=== PATIENT | female | born 1945 | race Caucasian/White ===

== ENCOUNTER → 2020-10-30 10:44 | Outpatient (CLI) | payer MEDICARE, SELFPAY ==
--- NOTE | 2020-10-30 10:46 | DI.CT.S_ITS ---
PROCEDURE: CT HEAD/BRAIN WO CON INDICATIONS: Progressive symptomatic trigeminal neuralgia TECHNIQUE: Noncontrast 4.5 mm thick angled axial sections acquired from the foramen magnum to the vertex, with coronal and sagittal reformats. For radiation dose reduction, the following was used: automated exposure control, adjustment of mA and/or kV according to patient size. COMPARISON: None. FINDINGS: Image quality: Excellent. CSF spaces: Basal cisterns are patent. No extra-axial fluid collections. The ventricles are symmetric in size and shape. Brain: No intracranial bleeds or masses. There is cerebral volume loss for age, with resultant ventricular and sulcal prominence. There are periventricular and deep white matter chronic small vessel ischemic changes. There is intracranial internal carotid artery atherosclerosis. To the limits of this standard protocol noncontrast CT, no definite abnormalities of trigeminal nerves or the Meckel's caves can be seen. Skull and face: Calvarium and visualized facial bones appear intact, without suspicious lesions. Sinuses: Visualized sinuses and mastoids are clear. IMPRESSION: Unremarkable noncontrast head CT. If it would be helpful for clinical management decision making, please consider a dedicated skull base protocol MRI (without and with contrast) for further evaluation (assuming that there is no contraindication). Dictated by: Agustin Ho M.D. on 10/30/2020 at 10:04 Approved by: Agustin Ho M.D. on 10/30/2020 at 10:06
== END ==
PROVIDERS: PCP Family Medicine; Referring Provider Family Medicine; Visit Provider Family Medicine
DX: G50.0 Trigeminal neuralgia (principal); F07.81 Postconcussional syndrome
CPT/HCPCS: 70450

== ENCOUNTER 2021-05-16 14:30 | Observation (INO) | payer MEDICARE, SELFPAY ==
[2021-05-16] VITALS (12 sets, daily range): BP systolic 127–161; BP diastolic 68–78; PULSE 77–95; RESP 17–27; TEMP 36.1; O2SAT 92–98; BMI 20.5; BMI 20.8
--- NOTE | 2021-05-16 16:22 | ED_ITS ---
HPI - GI Bleed <Caterina Levy MD - Last Filed: 05/17/21 07:42> General Chief complaint: GI Bleed Stated complaint: Bleeding post endo/colonoscopy Time Seen by Provider: 05/16/21 16:07 Source: patient and family Mode of arrival: Wheelchair History of Present Illness HPI Narrative: 75-year-old woman with a history of reflux, esophageal strictures, post menopause, hyperlipidemia who underwent both upper lower en doscopy on May 09 at [facility] in [place]. On the she noticed normal stool but UTI type symptoms and was started on Cipro. From the she had some blood mixed in with stool in notice that the stool is becoming darker. On the she had to dark stools with red blood mixed in and on the stools. Today she is having increasing abdominal bloating and cramping and had to very black soft but formed stools mixed with deeper red blood before noon today and is beginning to feel slightly dizzy when she stands up. She describes no chest pain, palpitations no shortness of breath. No headaches or acute neurologic symptoms. The UTI symptoms are improved and she has 2 more doses of Cipro to complete that course. EGD and colonoscopy records indicate an 18 mm stricture at 37 cm from the incisor. An 18 mm balloon was used to dilate this without complication. The co lonoscopy showed 2 polyps in the ascending colon that were removed, diverticulosis of the sigmoid colon and internal hemorrhoids. Related Data Home Medications Medication Instructions Recorded Confirmed omeprazole 20 mg capsule,delayed 20 mg PO DAILY 09/10/20 05/16/21 release trazodone 50 mg tablet 50 mg PO BEDTIME 09/10/20 05/16/21 estradiol 0.5 mg tablet 0.5 mg PO DAILY tab 10/24/20 05/16/21 simvastatin 10 mg tablet 10 mg PO DAILY tab 10/24/20 05/16/21 Allergies Allergy/AdvReac Type Severity Reaction Status Date / Time prochlorperazine AdvReac Intermediate Verified 04/22/21 10:26 [From Compazine] Review of Systems <Caterina Levy MD - Last Filed: 05/17/21 07:42> Review of Systems Narrative: Remainder of complete review of systems is otherwise unremarkable except for that included in the HPI. Patient History <Caterina Levy MD - Last Filed: 05/17/21 07:42> Medical History Constipation GERD (gastroesophageal reflux disease) Head contusion Osteoarthritis Post concussive syndrome Trigeminal neuralgia Social History household members: significant other Smoking Status: Former smoker alcohol intake: current Smoking Status: Former smoker alcohol intake frequency: a few times a month Exam <Caterina Levy MD - Last Filed: 05/17/21 07:42> Narrative Exam Narrative: General: Healthy appearing, in no acute distress. Able to give a complete and coherent history. Well-nourished well-developed HEENT: Moist mucous membranes, normal sclera with reactive pupils, Neck: No JVD, supple Respiratory: Lungs are clear to auscultation, no wheezing no rales no rhonchi. Full and symmetrical air movement Cardiac: Regular rate and rhythm no murmurs no bruits Abdomen: Soft, mild distension, diffuse tenderness without rebound or guarding and hyperactive bowel tones, no flank pain Skin: Warm and dry, no rashes Neurologic: Grossly neurologically intact with no obvious asymmetries or abnormalities Extremities: No trauma, well perfused Psych: Cooperative, appropriate insight and affect Initial Vital Signs Initial Vital Signs: Vital Signs Temperature 97 F L 05/16/21 15:01 Pulse Rate 95 H 05/16/21 15:01 Respiratory Rate 20 05/16/21 15:01 Blood Pressure 144/68 H 05/16/21 15:01 Pulse Oximetry 97 05/16/21 15:01 <Kristen Barry DO - Last Filed: 05/17/21 04:50> Initial Vital Signs Initial Vital Signs: Vital Signs Temperature 97 F L 05/16/21 15:01 Pulse Rate 95 H 05/16/21 15:01 Respiratory Rate 20 05/16/21 15:01 Blood Pressure 144/68 H 05/16/21 15:01 Pulse Oximetry 97 05/16/21 15:01 Course <Caterina Levy MD - Last Filed: 05/17/21 07:42> Orders Ordered: Acetaminophen (Acetaminophen 325 Mg Tablet) 650 mg PO Q6HR PRN PRN Reason: Fever/Mild Pain (1-3) Ceftriaxone Sodium 1,000 mg/ (Sodium Chloride) 100 mls @ 200 mls/hr IV Q24H [facility] Last Infusion: 05/16/21 21:21 Dose: 0 mls/hr Documented by: Admin: 05/16/21 20:32 Dose: 200 mls/hr Documented by: MASOOD Sodium Chloride (Normal Saline 0.9%) 1,000 mls @ 100 mls/hr IV CONT GINNY Last Admin: 05/17/21 02:49 Dose: 100 mls/hr Documented by: CHE Morphine Sulfate (Morphine 2 Mg/Ml Inj) 2 mg IV Q4HR PRN PRN Reason: Pain, Moderate (4-6) Naloxone HCl (Naloxone 0.4 Mg/Ml Vial) 0.2 mg IV Q2MIN PRN PRN Reason: Opiate Reversal Ondansetron HCl (Ondansetron 4 Mg/2 Ml Inj) 4 mg IV Q8HR PRN PRN Reason: Nausea And Vomiting Pantoprazole Sodium (Pantoprazole 40 Mg Vial) 40 mg IV BID GINNY Discontinued Medications Sodium Chloride (Normal Saline 0.9%) 1,000 mls @ 1,000 mls/hr IV BOLUS ONE Stop: 05/16/21 17:27 Last Infusion: 05/16/21 18:28 Dose: 0 mls/hr Documented by: Admin: 05/16/21 16:37 Dose: 1,000 mls/hr Documented by: LIN Pantoprazole Sodium (Pantoprazole 40 Mg Vial) 80 mg IV NOW ONE Stop: 05/16/21 16:29 Last Admin: 05/16/21 16:38 Dose: 80 mg Documented by: LIN Vital Signs Vital signs: Vital Signs - 8 hr 05/16/21 15:01 Temperature 97 F L Pulse Rate 95 H Respiratory Rate 20 Blood Pressure 144/68 H Pulse Oximetry 97 <Kristen Barry DO - Last Filed: 05/17/21 04:50> Orders Ordered: Acetaminophen (Acetaminophen 325 Mg Tablet) 650 mg PO Q6HR PRN PRN Reason: Fever/Mild Pain (1-3) Ceftriaxone Sodium 1,000 mg/ (Sodium Chloride) 100 mls @ 200 mls/hr IV Q24H [facility] Last Infusion: 05/16/21 21:21 Dose: 0 mls/hr Documented by: Admin: 05/16/21 20:32 Dose: 200 mls/hr Documented by: MASOOD Sodium Chloride (Normal Saline 0.9%) 1,000 mls @ 100 mls/hr IV CONT GINNY Last Admin: 05/17/21 02:49 Dose: 100 mls/hr Documented by: CHE Morphine Sulfate (Morphine 2 Mg/Ml Inj) 2 mg IV Q4HR PRN PRN Reason: Pain, Moderate (4-6) Naloxone HCl (Naloxone 0.4 Mg/Ml Vial) 0.2 mg IV Q2MIN PRN PRN Reason: Opiate Reversal Ondansetron HCl (Ondansetron 4 Mg/2 Ml Inj) 4 mg IV Q8HR PRN PRN Reason: Nausea And Vomiting Pantoprazole Sodium (Pantoprazole 40 Mg Vial) 40 mg IV BID GINNY Discontinued Medications Sodium Chloride (Normal Saline 0.9%) 1,000 mls @ 1,000 mls/hr IV BOLUS ONE Stop: 05/16/21 17:27 Last Infusion: 05/16/21 18:28 Dose: 0 mls/hr Documented by: Admin: 05/16/21 16:37 Dose: 1,000 mls/hr Documented by: LIN Pantoprazole Sodium (Pantoprazole 40 Mg Vial) 80 mg IV NOW ONE Stop: 05/16/21 16:29 Last Admin: 05/16/21 16:38 Dose: 80 mg Documented by: LIN Reevaluation(s) Reevaluation #1: Patient is seen and evaluated independently by myself. Patient's exam some mild abdominal discomfort but otherwise reassuring. Patient's labs and CT imaging reviewed by myself. Well as her recent symptoms. Patient states she just started having rectal bleeding in the last 12-24 hours. Time: 19:01 Consultations Consultation #1: Dr. Leyva, accepts for observation. Reviewed patient's EGD and colonoscopy findings. Labs. CT chest which was requested by Dr. Montenegro. Time: 19:26 Consultation #2: Dr. Montenegro updated on CT results. Aware of consult. Vital Signs Vital signs: Vital Signs - 8 hr 05/16/21 15:01 Temperature 97 F L Pulse Rate 95 H Respiratory Rate 20 Blood Pressure 144/68 H Pulse Oximetry 97 MDM - GI Bleed <Caterina Levy MD - Last Filed: 05/17/21 07:42> Lab Data Result diagrams: 05/16/21 23:25 05/16/21 15:59 Labs: Lab Results 05/16/21 05/16/21 05/16/21 Range/Units 15:59 15:59 15:59 WBC 10.1 (4.5-11.0) X10^3/uL RBC 4.18 (4.0-5.2) X10^6/uL Hgb 13.2 (12.0-16.0) g/dL Hct 39.4 (36-46) % MCV 94.1 (80-100) fL MCH 31.5 (26-34) PG MCHC 33.5 (30-36) % RDW 13.0 (11.6-14.8) % Plt Count 163 (150-400) X10^3/uL Neut % (Auto) 64.3 (50-75) % Lymph % (Auto) 27.5 (25-40) % Gordon % (Auto) 6.7 (3-14) % Eos % (Auto) 1.0 L (2-4) % Baso % (Auto) 0.5 (0-2) % Neut # (Auto) 6500 (1011-8938) /uL Lymph # (Auto) 2800 (4629-3305) /uL Gordon # (Auto) 700 (0-900) /uL Eos # (Auto) 100 (0-450) /uL Baso # (Auto) 100 (0-100) /uL Sodium 141 (137-145) mmol/L Potassium 3.7 (3.4-5.1) mmol/L Chloride 106 (98-107) mmol/L Carbon Dioxide 25 (22-32) mmol/L BUN 14 (7-17) mg/dL Creatinine 0.68 (0.52-1.04) mg/dL Estimated GFR > 60.0 (>60) mL/min BUN/Creatinine Ratio 20.6 (6-22) Glucose 101 (80-110) mg/dL Calcium 9.2 (8.4-10.2) mg/dL Magnesium 2.1 (1.6-2.3) mg/dL Total Bilirubin 0.6 (0.2-1.3) mg/dL AST 31 (14-36) IU/L ALT 16 (<35) IU/L Alkaline Phosphatase 59 (38-126) U/L Troponin I < 0.012 (0.01-0.034) ng/mL Total Protein 6.9 (6.3-8.2) g/dL Albumin 4.2 (3.5-5.0) g/dL Globulin 2.7 (1.7-4.1) g/dL Albumin/Globulin Ratio 1.6 (1.0-2.8) Lipase 88 (23-300) U/L Urine Color Urine Appearance Urine pH (4.5-8.0) Ur Specific [place] (1.000-1.035) Urine Protein (Negative) Urine Glucose (UA) (Negative) g/dL Urine Ketones (NEGATIVE) Urine Occult Blood (Negative) Urine Nitrate (Negative) Urine Bilirubin (NEGATIVE) Urine Urobilinogen (0.2) E.U./dL Ur Leukocyte Esterase (NEGATIVE) Urine RBC (0-5/HPF) Urine WBC (0-5/HPF) Ur Squamous Epith Cells (0-5/HPF) Urine Bacteria (None) Ur Culture Indicated? SARS-CoV-2 (PCR) (Negative) Blood Type Antibody Screen 05/16/21 05/16/21 05/16/21 Range/Units 15:59 16:45 17:17 WBC (4.5-11.0) X10^3/uL RBC (4.0-5.2) X10^6/uL Hgb (12.0-16.0) g/dL Hct (36-46) % MCV (80-100) fL MCH (26-34) PG MCHC (30-36) % RDW (11.6-14.8) % Plt Count (150-400) X10^3/uL Neut % (Auto) (50-75) % Lymph % (Auto) (25-40) % Gordon % (Auto) (3-14) % Eos % (Auto) (2-4) % Baso % (Auto) (0-2) % Neut # (Auto) (1407-0338) /uL Lymph # (Auto) (3000-3866) /uL Gordon # (Auto) (0-900) /uL Eos # (Auto) (0-450) /uL Baso # (Auto) (0-100) /uL Sodium (137-145) mmol/L Potassium (3.4-5.1) mmol/L Chloride (98-107) mmol/L Carbon Dioxide (22-32) mmol/L BUN (7-17) mg/dL Creatinine (0.52-1.04) mg/dL Estimated GFR (>60) mL/min BUN/Creatinine Ratio (6-22) Glucose (80-110) mg/dL Calcium (8.4-10.2) mg/dL Magnesium (1.6-2.3) mg/dL Total Bilirubin (0.2-1.3) mg/dL AST (14-36) IU/L ALT (<35) IU/L Alkaline Phosphatase (38-126) U/L Troponin I (0.01-0.034) ng/mL Total Protein (6.3-8.2) g/dL Albumin (3.5-5.0) g/dL Globulin (1.7-4.1) g/dL Albumin/Globulin Ratio (1.0-2.8) Lipase (23-300) U/L Urine Color Yellow Urine Appearance Clear Urine pH 5.5 (4.5-8.0) Ur Specific [place] <=1.005 (1.000-1.035) Urine Protein Negative (Negative) Urine Glucose (UA) Negative (Negative) g/dL Urine Ketones Negative (NEGATIVE) Urine Occult Blood Trace-lysed (Negative) Urine Nitrate Negative (Negative) Urine Bilirubin Negative (NEGATIVE) Urine Urobilinogen 0.2 (0.2) E.U./dL Ur Leukocyte Esterase Negative (NEGATIVE) Urine RBC 0-1/hpf (0-5/HPF) Urine WBC 0-1/hpf (0-5/HPF) Ur Squamous Epith Cells 0-1 /hpf (0-5/HPF) Urine Bacteria Occasional (0-1) (None) Ur Culture Indicated? Cult not indicated SARS-CoV-2 (PCR) Negative (Negative) Blood Type O Positive Antibody Screen Negative <Kristen Barry, - Last Filed: 05/17/21 04:50> Lab Data Labs: Lab Results 05/16/21 05/16/21 05/16/21 Range/Units 15:59 15:59 15:59 WBC 10.1 (4.5-11.0) X10^3/uL RBC 4.18 (4.0-5.2) X10^6/uL Hgb 13.2 (12.0-16.0) g/dL Hct 39.4 (36-46) % MCV 94.1 (80-100) fL MCH 31.5 (26-34) PG MCHC 33.5 (30-36) % RDW 13.0 (11.6-14.8) % Plt Count 163 (150-400) X10^3/uL Neut % (Auto) 64.3 (50-75) % Lymph % (Auto) 27.5 (25-40) % Gordon % (Auto) 6.7 (3-14) % Eos % (Auto) 1.0 L (2-4) % Baso % (Auto) 0.5 (0-2) % Neut # (Auto) 6500 (8538-9161) /uL Lymph # (Auto) 2800 (6449-2563) /uL Gordon # (Auto) 700 (0-900) /uL Eos # (Auto) 100 (0-450) /uL Baso # (Auto) 100 (0-100) /uL Sodium 141 (137-145) mmol/L Potassium 3.7 (3.4-5.1) mmol/L Chloride 106 (98-107) mmol/L Carbon Dioxide 25 (22-32) mmol/L BUN 14 (7-17) mg/dL Creatinine 0.68 (0.52-1.04) mg/dL Estimated GFR > 60.0 (>60) mL/min BUN/Creatinine Ratio 20.6 (6-22) Glucose 101 (80-110) mg/dL Calcium 9.2 (8.4-10.2) mg/dL Magnesium 2.1 (1.6-2.3) mg/dL Total Bilirubin 0.6 (0.2-1.3) mg/dL AST 31 (14-36) IU/L ALT 16 (<35) IU/L Alkaline Phosphatase 59 (38-126) U/L Troponin I < 0.012 (0.01-0.034) ng/mL Total Protein 6.9 (6.3-8.2) g/dL Albumin 4.2 (3.5-5.0) g/dL Globulin 2.7 (1.7-4.1) g/dL Albumin/Globulin Ratio 1.6 (1.0-2.8) Lipase 88 (23-300) U/L Urine Color Urine Appearance Urine pH (4.5-8.0) Ur Specific [place] (1.000-1.035) Urine Protein (Negative) Urine Glucose (UA) (Negative) g/dL Urine Ketones (NEGATIVE) Urine Occult Blood (Negative) Urine Nitrate (Negative) Urine Bilirubin (NEGATIVE) Urine Urobilinogen (0.2) E.U./dL Ur Leukocyte Esterase (NEGATIVE) Urine RBC (0-5/HPF) Urine WBC (0-5/HPF) Ur Squamous Epith Cells (0-5/HPF) Urine Bacteria (None) Ur Culture Indicated? SARS-CoV-2 (PCR) (Negative) Blood Type Antibody Screen 05/16/21 05/16/21 05/16/21 Range/Units 15:59 16:45 17:17 WBC (4.5-11.0) X10^3/uL RBC (4.0-5.2) X10^6/uL Hgb (12.0-16.0) g/dL Hct (36-46) % MCV (80-100) fL MCH (26-34) PG MCHC (30-36) % RDW (11.6-14.8) % Plt Count (150-400) X10^3/uL Neut % (Auto) (50-75) % Lymph % (Auto) (25-40) % Gordon % (Auto) (3-14) % Eos % (Auto) (2-4) % Baso % (Auto) (0-2) % Neut # (Auto) (9028-2974) /uL Lymph # (Auto) (4145-6149) /uL Gordon # (Auto) (0-900) /uL Eos # (Auto) (0-450) /uL Baso # (Auto) (0-100) /uL Sodium (137-145) mmol/L Potassium (3.4-5.1) mmol/L Chloride (98-107) mmol/L Carbon Dioxide (22-32) mmol/L BUN (7-17) mg/dL Creatinine (0.52-1.04) mg/dL Estimated GFR (>60) mL/min BUN/Creatinine Ratio (6-22) Glucose (80-110) mg/dL Calcium (8.4-10.2) mg/dL Magnesium (1.6-2.3) mg/dL Total Bilirubin (0.2-1.3) mg/dL AST (14-36) IU/L ALT (<35) IU/L Alkaline Phosphatase (38-126) U/L Troponin I (0.01-0.034) ng/mL Total Protein (6.3-8.2) g/dL Albumin (3.5-5.0) g/dL Globulin (1.7-4.1) g/dL Albumin/Globulin Ratio (1.0-2.8) Lipase (23-300) U/L Urine Color Yellow Urine Appearance Clear Urine pH 5.5 (4.5-8.0) Ur Specific [place] <=1.005 (1.000-1.035) Urine Protein Negative (Negative) Urine Glucose (UA) Negative (Negative) g/dL Urine Ketones Negative (NEGATIVE) Urine Occult Blood Trace-lysed (Negative) Urine Nitrate Negative (Negative) Urine Bilirubin Negative (NEGATIVE) Urine Urobilinogen 0.2 (0.2) E.U./dL Ur Leukocyte Esterase Negative (NEGATIVE) Urine RBC 0-1/hpf (0-5/HPF) Urine WBC 0-1/hpf (0-5/HPF) Ur Squamous Epith Cells 0-1 /hpf (0-5/HPF) Urine Bacteria Occasional (0-1) (None) Ur Culture Indicated? Cult not indicated SARS-CoV-2 (PCR) Negative (Negative) Blood Type O Positive Antibody Screen Negative Imaging Data CT scan - chest: Radiologist's Impression: Beverly Smith??75??F??1945 ? Allergy/Adv: prochlorperazine Close Chest CT (Signed) Yaz Parekh - 05/16/[address] (Signed) Agustin Ho - 10/30/20 [address]?[place] [address] CT Scan Report Signed Patient: Beverly Smith MR#: [id number] : 1945 Acct:[id number] Age/Sex: 75 / F Date of Service: 05/16/21 Loc: ED Accession Number: [id number] ?? Procedure: CT chest w con Ordering Provider: Caterina Levy MD PROCEDURE:? CT CHEST W CON ? INDICATIONS:? GI blood post EGD with dilation 05/09 ? TECHNIQUE:? After the administration of intravenous contrast, 5 mm thick sections acquired from the pulmonary apices to the posterior costophrenic angles.? 1 mm axial lung, 5 mm thick coronal and sagittal reformats and 7 mm axial MIP were acquired.? For radiation dose reduction, the following was used:? automated exposure control, adjustment of mA and/or kV according to patient size.? ? COMPARISON:? None. ? FINDINGS:? Image quality:? Excellent.? ? Lungs and pleura:? No acute air space opacities.? No pleural effusions or pneumothorax.? Central and peripheral airways are patent and normal in caliber.? ? Mediastinum:? Heart size is normal.? No pericardial effusion.? No mediastinal or hilar adenopathy by size criteria.? Thoracic aorta and central pulmonary arteries are normal in size.? Esophagus is normal in caliber.? No wall thickening.? No retained contrast.? No extraluminal gas.? No periesophageal hematoma.? No hiatal hernia.? ? Bones and chest wall:? No suspicious bony lesions.? No vertebral body compression fractures.? No axillary or supraclavicular adenopathy by size criteria.? Thyroid gland is normal .? ? Abdomen:? Visualized upper abdominal solid organs appear normal.? Upper abdominal bowel loops are normal in caliber.? ? IMPRESSION:? 1. No evidence of esophageal pathology or complication post EGD.? ? ? Dictated by: Yaz Parekh M.D. on 05/16/2021 at 18:40 ? ? Approved by: Yaz Parekh M.D. on 05/16/2021 at 18:46?? ECG Data Attestation: I personally reviewed and interpreted this ECG as follows: Prior ECG tracings: not available for review Interpretation: Sinus rhythm rate of 78 MO 144 QRS of 122 and QTC 483. Right bundle branch block. No priors. MDM Narrative Medical decision making narrative: 75-year-old female comes emergency department with rectal bleeding melanotic and bright red status post EGD colonoscopy. Patient's report is included and she had stricture on EGD as well as polypectomy and hemorrhoids noted on colonoscopy. This was at an outside facility. Patient's labs here are quite reassuring. She was tachycardic here in the department particularly when getting up to a standing position. And was dizzy. Case was discussed with General surgery by Dr. Levy who was recommended to order CT chest with her recent EGD and symptoms of dizziness. This was negative. And patient was accepted by hospitalist for observation. Patient was given a PPI for possible upper GI bleed and Dr. Montenegro from General surgery was updated. Discharge Plan Departure Patient Disposition: Admitted as Observation Clinical Impression: Acute GI bleeding, Abnormal findings on esophagogastroduodenoscopy (EGD), S/P colonoscopic polypectomy Admit Date/Time: 05/16/21 19:44 Admit Provider: Yayo Leyva ED Sign-out <Caterina Levy MD - Last Filed: 05/17/21 07:42> Cosign ED Attending Cosignature Attestation: I was immediately available in the department for consultation throughout this patient's visit. I agree with documentation as above. Caterina Levy MD
[2021-05-16] MEDS: SODIUM CHLORIDE 0.9% 1,000 ML 1000 ML IV (16:37)
[2021-05-16] MEDS: PANTOPRAZOLE 40 MG VIAL 80 MG IV (16:38)
[2021-05-16 16:47] LABS: Alanine Aminotransferase 16 IU/L (<35); Albumin 4.2 g/dL (3.5-5.0); Albumin Globulin Ratio 1.6 (1.0-2.8); Alkaline Phosphatase 59 U/L (38-126); Aspartate Aminotransferase 31 IU/L (14-36); BUN Creatinine Ratio 20.6 (6-22); Bilirubin Total 0.6 mg/dL (0.2-1.3); Blood Urea Nitrogen 14 mg/dL (7-17); Calcium 9.2 mg/dL (8.4-10.2); Carbon Dioxide 25 mmol/L (22-32); Chloride 106 mmol/L (98-107); Estimated Glomerular Filt Rate > 60.0 mL/min (>60); Globulin 2.7 g/dL (1.7-4.1); Glucose 101 mg/dL (80-110); HEMOLYSIS < 15 (0-50); Lipase 88 U/L (23-300); Magnesium 2.1 mg/dL (1.6-2.3); Potassium 3.7 mmol/L (3.4-5.1); Sodium 141 mmol/L (137-145); Total Protein 6.9 g/dL (6.3-8.2)
[2021-05-16 16:48] LABS: Add Manual Diff / Slide Review NO; Basophils Absolute Auto 100 /uL (0-100); Basophils Percent Auto 0.5 % (0-2); Eosinophils Absolute Auto 100 /uL (0-450); Hematocrit 39.4 % (36-46); Hemoglobin 13.2 g/dL (12.0-16.0); Lymphocytes Absolute Auto 2800 /uL (1100-4500); Lymphocytes Percent Auto 27.5 % (25-40); Mean Corpuscular HGB Conc 33.5 % (30-36); Mean Corpuscular Hemoglobin 31.5 PG (26-34); Mean Corpuscular Volume 94.1 fL (80-100); Monocytes Absolute Auto 700 /uL (0-900); Monocytes Percent Auto 6.7 % (3-14); Neutrophils Absolute Auto 6500 /uL (1500-7000); Neutrophils Percent Auto 64.3 % (50-75); Platelet Count 163 X10^3/uL (150-400); Red Blood Cell Count 4.18 X10^6/uL (4.0-5.2); White Blood Cell Count 10.1 X10^3/uL (4.5-11.0)
[2021-05-16 16:58] LABS: Troponin I < 0.012 ng/mL (0.01-0.034)
--- NOTE | 2021-05-16 17:12 | DI.CT.S_ITS ---
PROCEDURE: CT CHEST W CON INDICATIONS: GI blood post EGD with dilation 05/09 TECHNIQUE: After the administration of intravenous contrast, 5 mm thick sections acquired from the pulmonary apices to the posterior costophrenic angles. 1 mm axial lung, 5 mm thick coronal and sagittal reformats and 7 mm axial MIP were acquired. For radiation dose reduction, the following was used: automated exposure control, adjustment of mA and/or kV according to patient size. COMPARISON: None. FINDINGS: Image quality: Excellent. Lungs and pleura: No acute air space opacities. No pleural effusions or pneumothorax. Central and peripheral airways are patent and normal in caliber. Mediastinum: Heart size is normal. No pericardial effusion. No mediastinal or hilar adenopathy by size criteria. Thoracic aorta and central pulmonary arteries are normal in size. Esophagus is normal in caliber. No wall thickening. No retained contrast. No extraluminal gas. No periesophageal hematoma. No hiatal hernia. Bones and chest wall: No suspicious bony lesions. No vertebral body compression fractures. No axillary or supraclavicular adenopathy by size criteria. Thyroid gland is normal . Abdomen: Visualized upper abdominal solid organs appear normal. Upper abdominal bowel loops are normal in caliber. IMPRESSION: 1. No evidence of esophageal pathology or complication post EGD. Dictated by: Yaz Parekh M.D. on 05/16/2021 at 18:40 Approved by: Yaz Parekh M.D. on 05/16/2021 at 18:46
[2021-05-16 17:21] LABS: Appearance Urine UA CLEAR; Bilirubin Urine UA NEGATIVE (NEGATIVE); Color Urine UA YELLOW; Glucose Urine UA NEGATIVE (Negative); Ketones Urine UA NEGATIVE (NEGATIVE); Leukocyte Esterase Urine UA NEGATIVE (NEGATIVE); Nitrite Urine UA NEGATIVE (Negative); Occult Blood Urine UA TRACE-LYSED (Negative); Protein Urine UA NEGATIVE (Negative); Specific Gravity Urine UA <=1.005 (1.000-1.035); Urobilinogen Urine UA 0.2 E.U./dL (0.2)
[2021-05-16 17:23] LABS: pH Urine UA 5.5 (4.5-8.0)
[2021-05-16 17:30] LABS: Bacteria Urine Occasional (0-1); Culture Indicated Urine Cult Not Indicated; RBC Urine 0-1/HPF (0-5/HPF); Squamous Epithelial Cell Urine 0-1 /HPF (0-5/HPF); WBC Urine 0-1/HPF (0-5/HPF)
[2021-05-16 17:54] LABS: COVID19 - ADMIT (NP swab/PCR) Negative (Negative)
--- NOTE | 2021-05-16 19:50 | DI.CT.S_ITS ---
PROCEDURE: CT ABDOMEN PELVIS W CON INDICATIONS: abdominal pain, gi bleed TECHNIQUE: After the administration of oral and IV contrast, axial sections were acquired from the lung bases to the pubic symphysis. Coronal and sagittal reformats were performed. For radiation dose reduction, the following was used: automated exposure control, adjustment of mA and/or kV according to patient size. COMPARISON: None. FINDINGS: Image quality: Excellent. Lung bases: Unremarkable. Heart: No significant findings. ABDOMEN: Liver: Normal size, smooth margin, small hypodensity in segment V, likely a 0.9 cm cyst or hemangioma. Gallbladder: Normal wall thickness. Biliary ducts: Nondilated. Pancreas: Normal. Spleen: Normal size. Adrenal Glands: No nodules. Kidneys and Ureters: Normal enhancement. No hydronephrosis. No perinephric inflammation. Stomach and Bowel: Stomach and proximal small bowel appear normal. There are several mildly prominent loops of mid to distal small bowel in the anterior left upper quadrant. There is a long segment of mid to distal ileum demonstrating moderate circumferential wall thickening, but without a transition point. More distal loops of ileum are normal. Contrast reaches the proximal colon. There is a large amount of stool throughout the colon and occasional sigmoid diverticulosis. Peritoneum: Mild amount of free pelvic fluid is seen. No focal fluid collections. No free intraperitoneal air. There are no focal or generalized inflammatory changes in the peritoneum. Ventral Wall: No hernia. Abdominal Nodes: No retroperitoneal or mesenteric adenopathy by size criteria. Vessels: Aorta and inferior vena cava are normal in size. PELVIS: Pelvic Organs: The uterus is absent. No suspicious adnexal masses. Bladder: Partially filled, normal wall thickness. Pelvic Nodes: No enlarged lymph nodes. Miscellaneous: No inguinal hernias are seen. Bones: L4-5 lumbar fusion and disc spacer placement. Degenerative disc and endplate changes in the upper lumbar spine. IMPRESSION: 1. Moderately long segment of small bowel wall thickening suggesting inflammation, infection, less likely allergic reaction or hematoma. Small amount of free fluid in the pelvis is likely reactive. 2. No obstruction. 3. Large quantity of solid stool in the colon. 4. No evidence of solid organ injury or free intra-abdominal air. Dictated by: Yaz Parekh M.D. on 05/16/2021 at 20:44 Approved by: Yaz Parekh M.D. on 05/16/2021 at 20:55
[2021-05-16] MEDS: cefTRIAXone 1,000 MG in SODIUM CHLORIDE 0.9% 100 ML 200 ML IV (20:32)
--- NOTE | 2021-05-16 21:10 | P.HP_ITS ---
History of Present Illness History of Present Illness Date Patient Seen: 05/16/21 Time Patient Seen: 20:00 Chief complaint: Bleeding post endo/colonoscopy Narrative: Ms. Smith is a 75W with PMH GERD, chronic constipation with some incontinence, trigeminal neuralgia, recent UTI who presents with bright red blood per rectum. Patient recently, on 05/09, had an EGD and colonoscopy. EGD was done for known dysphagia and globus sensation, and colonoscopy done for inte rmittent stool incontinence. EGD showed an esophageal stricture that was dilated, and esophagitis, biopsies were taken and were benign. In addition colonoscopy showed diverticulosis, internal hemorrhoids, and polyps which were removed. Polyps were benign. She noticed Thursday she wasn't feeling normal, then Thursday morning she noticed dark colored blood in her stool. She toady has had two large bowel movements with diarrhea and bright red blood per rectum. She has felt dizzy while standing. She has also noted lower abdomen pain and distended belly. She has no vomiting. She has no fevers. She does feel she has had chills. She has no chest pain or shortness of breath. She denies significant nsaid use, minimal alcohol use. She has been treated for a UTI with ciprofloxacin and has two days of antibiotics remaining. In the ED workup was done, vitals notable for mild tachycardia with HR in 90s, and normal blood pressure systolic of 140s. Labs notable for WBC 10.1, Hgb 13.2, BUN 14, creatinine 0.68. LFTs and lipase ok. CT chest showed no acute process. CT abdomen showed moderately long segement of small bowel wall thickening suggestive of most likely inflammation or infection, with less likely allergic reaction or hematoma. She had small amout of free fluid in the pelvis. She had no evidence of free air, no obstruction, and large quantity of stool in the colon. She was ordered for IV fluid and protonix and admitted for further treatment. Family history: father, grandfather with prostate cancer Social history: employed as nurse Patient History Medical History Constipation GERD (gastroesophageal reflux disease) Head contusion Osteoarthritis Post concussive syndrome Trigeminal neuralgia Family & Social History Social History: household members significant other Prior Living Arrangements House Safety & Behavioral: Feels Safe in Current Yes Environment Been Physically Hurt or No Threatened By a Person Suicidal Ideation Description None Suicide Plan Description No Plan Tobacco & Substance use: Smoking Status Former smoker alcohol intake current alcohol intake frequency a few times a month Meds Home Medications and Allergies Home Medications Medication Instructions Recorded Confirmed Type omeprazole 20 mg capsule,delayed 20 mg PO DAILY 09/10/20 05/16/21 History release trazodone 50 mg tablet 50 mg PO BEDTIME 09/10/20 05/16/21 History estradiol 0.5 mg tablet 0.5 mg PO DAILY tab 10/24/20 05/16/21 History simvastatin 10 mg tablet 10 mg PO DAILY tab 10/24/20 05/16/21 History Allergies Allergy/AdvReac Type Severity Reaction Status Date / Time prochlorperazine AdvReac Intermediate Verified 04/22/21 10:26 [From Compazine] Review of Systems Review of Systems Narrative: 14 systems reviewed and negative aside from what is noted in HPI Exam Vital Signs (past 8 hours): - 05/16/21 15:01 05/16/21 16:23 05/16/21 16:30 Temperature 97 F L Pulse Rate 95 H 82 84 Respiratory Rate 20 Blood Pressure 144/68 H 137/78 Pulse Oximetry 97 95 95 05/16/21 17:00 05/16/21 17:50 05/16/21 18:00 Temperature Pulse Rate 84 87 82 Respiratory Rate 18 Blood Pressure 161/75 H Pulse Oximetry 95 92 96 05/16/21 18:30 05/16/21 19:00 05/16/21 19:30 Temperature Pulse Rate 80 79 78 Respiratory Rate 22 27 H 24 Blood Pressure Pulse Oximetry 97 97 97 05/16/21 19:53 Temperature Pulse Rate 85 Respiratory Rate 17 Blood Pressure 146/75 H Pulse Oximetry 96 Oxygen Delivery Method Room Air Oxygen Flow Rate 0 Narrative Exam Narrative: GEN: no acute distress HEENT: moist mucous membranes, PERRL NECK: trachea midline, no JVD CV: regular rate and rhythm with no murmurs PULM : clear bilaterally, no wheezes, rhonchi, rales ABD: soft, distended, hyperactive bowel sounds, mild tenderness diffusely, no rebound/guarding, no organomegaly EXT: warm and well perfused with no edema NEURO: awake, alert, oriented, no focal deficits noted PSYCH: pleasant, cooperative Objective Labs Result Diagrams: 05/16/21 15:59 05/16/21 15:59 Labs: Laboratory Results - last 24 hr 05/16/21 05/16/21 05/16/21 15:59 15:59 15:59 WBC 10.1 RBC 4.18 Hgb 13.2 Hct 39.4 MCV 94.1 MCH 31.5 MCHC 33.5 RDW 13.0 Plt Count 163 Neut % (Auto) 64.3 Lymph % (Auto) 27.5 [place] % (Auto) 6.7 Eos % (Auto) 1.0 L Baso % (Auto) 0.5 Neut # (Auto) 6500 Lymph # (Auto) 2800 [place] # (Auto) 700 Eos # (Auto) 100 Baso # (Auto) 100 Sodium 141 Potassium 3.7 Chloride 106 Carbon Dioxide 25 BUN 14 Creatinine 0.68 Estimated GFR > 60.0 BUN/Creatinine Ratio 20.6 Glucose 101 Calcium 9.2 Magnesium 2.1 Total Bilirubin 0.6 AST 31 ALT 16 Alkaline Phosphatase 59 Troponin I < 0.012 Total Protein 6.9 Albumin 4.2 Globulin 2.7 Albumin/Globulin Ratio 1.6 Lipase 88 Urine Color Urine Appearance Urine pH Ur Specific [place] Urine Protein Urine Glucose (UA) Urine Ketones Urine Occult Blood Urine Nitrate Urine Bilirubin Urine Urobilinogen Ur Leukocyte Esterase Urine RBC Urine WBC Ur Squamous Epith Cells Urine Bacteria Ur Culture Indicated? SARS-CoV-2 (PCR) Blood Type Antibody Screen 05/16/21 05/16/21 05/16/21 15:59 16:45 17:17 WBC RBC Hgb Hct MCV MCH MCHC RDW Plt Count Neut % (Auto) Lymph % (Auto) [place] % (Auto) Eos % (Auto) Baso % (Auto) Neut # (Auto) Lymph # (Auto) [place] # (Auto) Eos # (Auto) Baso # (Auto) Sodium Potassium Chloride Carbon Dioxide BUN Creatinine Estimated GFR BUN/Creatinine Ratio Glucose Calcium Magnesium Total Bilirubin AST ALT Alkaline Phosphatase Troponin I Total Protein Albumin Globulin Albumin/Globulin Ratio Lipase Urine Color Yellow Urine Appearance Clear Urine pH 5.5 Ur Specific [place] <=1.005 Urine Protein Negative Urine Glucose (UA) Negative Urine Ketones Negative Urine Occult Blood Trace-lysed Urine Nitrate Negative Urine Bilirubin Negative Urine Urobilinogen 0.2 Ur Leukocyte Esterase Negative Urine RBC 0-1/hpf Urine WBC 0-1/hpf Ur Squamous Epith Cells 0-1 /hpf Urine Bacteria Occasional (0-1) Ur Culture Indicated? Cult not indicated SARS-CoV-2 (PCR) Negative Blood Type O Positive Antibody Screen Negative Assessment & Plan Assessment & Plan narrative: 1. Acute GI bleed -has brbpr, recent colonoscopy with polyp removal, diverticulosis noted, and internal hemorrhoids, all are possible etiology as a lower GI bleed given normal BUN, hemodynamic stability, normal hgb -for now will continue on protonix IV BID overnight but if remains stable likely dc in AM -given findings of CT scan other etiology is bleeding from infectious or inflammatory process -maintain two PIVs -type and screen ordered -repeat cbc 11pm -NPO at midnight -consult surgery for possible scope 2. Abdominal pain with diarrhea -etiology not clear -possible infection, send stool culture -has been taking ciprofloxacin, c diff possible, will send -if etiology remains unclear may benefit from scope 3. GERD, esophagitis, recent dilated esophageal stricture -continue IV PPI BID for now -likely transition to oral PPI if remains stable 4. UTI -UA negative here, finish course of antibiotics with ceftriaxone x2 doses 5. Trigeminal neuralgia -asymptomatic currently -monitor for symptoms CODE: Full Proxy: Gladis Harrison daughter DVT ppx: SCDs only I have utilized all available immediate resources to obtain, update, or review the patient's current medications. Time Spent With Patient Critical Care time: I spent a total of [] minutes of critical care time on this patient's care today; this time is exclusive of procedural time. Quality VTE Deep Vein Thrombosis/Pulmonary Embolism Present on Admission: No MIPS - Admit I confirm the patient?s Advance Care Plan is present, Code status is documented, Surrogate decision maker is in patient?s record [If Yes, STOP here]: Yes
[2021-05-16 23:34] LABS: Hematocrit 36.4 % (36-46); Hemoglobin 11.9 g/dL (12.0-16.0); Mean Corpuscular HGB Conc 32.7 % (30-36); Mean Corpuscular Hemoglobin 30.9 PG (26-34); Mean Corpuscular Volume 94.5 fL (80-100); Platelet Count 160 X10^3/uL (150-400); Red Blood Cell Count 3.85 X10^6/uL (4.0-5.2); White Blood Cell Count 8.1 X10^3/uL (4.5-11.0)
[2021-05-17] VITALS (9 sets, daily range): BP systolic 122–136; BP diastolic 61–75; PULSE 77–83; RESP 15–18; TEMP 36.1–36.6; O2SAT 95–98
[2021-05-17] MEDS: SODIUM CHLORIDE 0.9% 1,000 ML 100 ML IV ×3 (02:49→23:10)
[2021-05-17 07:41] LABS: Add Manual Diff / Slide Review NO; Basophils Absolute Auto 0 /uL (0-100); Basophils Percent Auto 0.7 % (0-2); Eosinophils Absolute Auto 100 /uL (0-450); Eosinophils Percent Auto 1.9 % (2-4); Hematocrit 36.7 % (36-46); Hemoglobin 12.1 g/dL (12.0-16.0); Lymphocytes Absolute Auto 2400 /uL (1100-4500); Lymphocytes Percent Auto 34.7 % (25-40); Mean Corpuscular HGB Conc 32.8 % (30-36); Mean Corpuscular Hemoglobin 30.9 PG (26-34); Mean Corpuscular Volume 94.2 fL (80-100); Monocytes Absolute Auto 700 /uL (0-900); Monocytes Percent Auto 9.6 % (3-14); Neutrophils Absolute Auto 3600 /uL (1500-7000); Neutrophils Percent Auto 53.1 % (50-75); Platelet Count 165 X10^3/uL (150-400); White Blood Cell Count 6.8 X10^3/uL (4.5-11.0)
[2021-05-17 07:57] LABS: BUN Creatinine Ratio 14.3 (6-22); Blood Urea Nitrogen 11 mg/dL (7-17); Calcium 8.6 mg/dL (8.4-10.2); Carbon Dioxide 23 mmol/L (22-32); Chloride 109 mmol/L (98-107); Estimated Glomerular Filt Rate > 60.0 mL/min (>60); Glucose 90 mg/dL (80-110); HEMOLYSIS < 15 (0-50); Potassium 3.6 mmol/L (3.4-5.1); Sodium 140 mmol/L (137-145)
[2021-05-17] MEDS: PANTOPRAZOLE 40 MG VIAL IV ×2 (08:14→21:03)
--- NOTE | 2021-05-17 10:31 | CM.DANOTE ---
DCP: Case received, EMR reviewed and met with patient. Introduced self and role. Was able to obtain information regarding patient's baseline activity status prior to hospitalization. DCP assessment completed with information currently available. Patient is a 75 year old female who admitted yesterday evening to the care of the hospitalist team. PCP: Dr. Pereira. Payer: confirmed: Medicare/[employer]. Patient came to the hospital via private vehicle secondary to having rectal bleeding, as well as some dizziness. Patient had recent EGD, and uppar and lower endoscopy 05-09 at [facility] in [place]. Patient holds current diagnosis of Acute GI bleed. She is currently on IV Protonix, and will be having a surgery consult. Met with patient in her room. She was laying in bed, alert and oriented. Confirmed with her that she resides in [place] with her significant other, [place]. She is independent at her baseline, and has a local daughter named Nancy, and her other daughter, Gladis resides near [place]. P: DCP to continue to follow. Patient should be able to go home when she is deemed medically stable. Melissa Mary RN/Coin Rolling Machine Operator Discharge Planning/Care Management CM Discharge Assessment Start: 05/17/21 10:29 Freq: Status: Active Protocol: Document 05/17/21 10:29 (Rec: 05/17/21 10:30 [id number]) Discharge Planning Assessment Assigned Performance Makeup Artist Melissa Mary RN/Coin Rolling Machine Operator Advance Directives? No History Provided By Patient,Medical Record Prior Living Arrangements House Household Members significant other Type of transporation used prior to Drives own vehicle admit Independent with ADL's Yes Is patient alert and oriented? Yes Caregiver for Another No Barriers to Discharge No Discharge Plan Home Transportation Arrangement Significant other Referrals Initiated None needed Whiteboard Updated in Patient Room with Yes name and ext. # of Performance Makeup Artist Review Status In Process Next Review Type Continued Stay Review
--- NOTE | 2021-05-17 15:27 | PM.PN.1 ---
Subjective Subjective Date Patient Seen: 05/17/21 Time Patient Seen: 15:27 Interval history: [place] improved somewhat today, was hungry. Described vague abdominal pain moving upward over the day. Had a bowel movement which was not liquidy. C. diff was unable to be performed. Stool had marj blood and dark components. Hg did trend up early this AM to 12.1, repeat after this bowel movement pending. Surgery recommends continued clear liquids, will see patient tomorrow, suspects issue with dilatation. Exam Vital Signs (past 8 hours): - 05/17/21 08:27 05/17/21 11:40 05/17/21 12:50 Temperature 97.9 F 97.8 F Pulse Rate 78 79 Respiratory Rate 15 15 Blood Pressure 135/72 123/73 Pulse Oximetry 96 96 95 Oxygen Delivery Method Room Air Oxygen Flow Rate 0 Narrative Exam Narrative: GEN: no acute distress HEENT: moist mucous membranes, PERRL NECK: trachea midline, no JVD CV: regular rate and rhythm with no murmurs PULM : clear bilaterally, no wheezes, rhonchi, rales ABD: soft, minimally distended, mild tenderness diffusely, no rebound/guarding, no organomegaly EXT: warm and well perfused with no edema NEURO: awake, alert, oriented, no focal deficits noted PSYCH: pleasant, cooperative Objective Labs Result Diagrams: 05/17/21 07:05 05/17/21 07:05 Labs: Laboratory Results - last 24 hr 05/16/21 05/16/21 05/16/21 15:59 15:59 15:59 WBC 10.1 RBC 4.18 Hgb 13.2 Hct 39.4 MCV 94.1 MCH 31.5 MCHC 33.5 RDW 13.0 Plt Count 163 Neut % (Auto) 64.3 Lymph % (Auto) 27.5 [place] % (Auto) 6.7 Eos % (Auto) 1.0 L Baso % (Auto) 0.5 Neut # (Auto) 6500 Lymph # (Auto) 2800 [place] # (Auto) 700 Eos # (Auto) 100 Baso # (Auto) 100 Sodium 141 Potassium 3.7 Chloride 106 Carbon Dioxide 25 BUN 14 Creatinine 0.68 Estimated GFR > 60.0 BUN/Creatinine Ratio 20.6 Glucose 101 Calcium 9.2 Magnesium 2.1 Total Bilirubin 0.6 AST 31 ALT 16 Alkaline Phosphatase 59 Troponin I < 0.012 Total Protein 6.9 Albumin 4.2 Globulin 2.7 Albumin/Globulin Ratio 1.6 Lipase 88 Urine Color Urine Appearance Urine pH Ur Specific [place] Urine Protein Urine Glucose (UA) Urine Ketones Urine Occult Blood Urine Nitrate Urine Bilirubin Urine Urobilinogen Ur Leukocyte Esterase Urine RBC Urine WBC Ur Squamous Epith Cells Urine Bacteria Ur Culture Indicated? C. difficile Tox (PCR) SARS-CoV-2 (PCR) Blood Type Antibody Screen 05/16/21 05/16/21 05/16/21 15:59 16:45 17:17 WBC RBC Hgb Hct MCV MCH MCHC RDW Plt Count Neut % (Auto) Lymph % (Auto) [place] % (Auto) Eos % (Auto) Baso % (Auto) Neut # (Auto) Lymph # (Auto) [place] # (Auto) Eos # (Auto) Baso # (Auto) Sodium Potassium Chloride Carbon Dioxide BUN Creatinine Estimated GFR BUN/Creatinine Ratio Glucose Calcium Magnesium Total Bilirubin AST ALT Alkaline Phosphatase Troponin I Total Protein Albumin Globulin Albumin/Globulin Ratio Lipase Urine Color Yellow Urine Appearance Clear Urine pH 5.5 Ur Specific [place] <=1.005 Urine Protein Negative Urine Glucose (UA) Negative Urine Ketones Negative Urine Occult Blood Trace-lysed Urine Nitrate Negative Urine Bilirubin Negative Urine Urobilinogen 0.2 Ur Leukocyte Esterase Negative Urine RBC 0-1/hpf Urine WBC 0-1/hpf Ur Squamous Epith Cells 0-1 /hpf Urine Bacteria Occasional (0-1) Ur Culture Indicated? Cult not indicated C. difficile Tox (PCR) SARS-CoV-2 (PCR) Negative Blood Type O Positive Antibody Screen Negative 05/16/21 05/17/21 05/17/21 23:25 07:05 07:05 WBC 8.1 6.8 RBC 3.85 L 3.90 L Hgb 11.9 L 12.1 Hct 36.4 36.7 MCV 94.5 94.2 MCH 30.9 30.9 MCHC 32.7 32.8 RDW 13.0 13.0 Plt Count 160 165 Neut % (Auto) 53.1 Lymph % (Auto) 34.7 [place] % (Auto) 9.6 Eos % (Auto) 1.9 L Baso % (Auto) 0.7 Neut # (Auto) 3600 Lymph # (Auto) 2400 [place] # (Auto) 700 Eos # (Auto) 100 Baso # (Auto) 0 Sodium 140 Potassium 3.6 Chloride 109 H Carbon Dioxide 23 BUN 11 Creatinine 0.77 Estimated GFR > 60.0 BUN/Creatinine Ratio 14.3 Glucose 90 Calcium 8.6 Magnesium Total Bilirubin AST ALT Alkaline Phosphatase Troponin I Total Protein Albumin Globulin Albumin/Globulin Ratio Lipase Urine Color Urine Appearance Urine pH Ur Specific [place] Urine Protein Urine Glucose (UA) Urine Ketones Urine Occult Blood Urine Nitrate Urine Bilirubin Urine Urobilinogen Ur Leukocyte Esterase Urine RBC Urine WBC Ur Squamous Epith Cells Urine Bacteria Ur Culture Indicated? C. difficile Tox (PCR) SARS-CoV-2 (PCR) Blood Type Antibody Screen 05/17/21 13:50 WBC RBC Hgb Hct MCV MCH MCHC RDW Plt Count Neut % (Auto) Lymph % (Auto) [place] % (Auto) Eos % (Auto) Baso % (Auto) Neut # (Auto) Lymph # (Auto) [place] # (Auto) Eos # (Auto) Baso # (Auto) Sodium Potassium Chloride Carbon Dioxide BUN Creatinine Estimated GFR BUN/Creatinine Ratio Glucose Calcium Magnesium Total Bilirubin AST ALT Alkaline Phosphatase Troponin I Total Protein Albumin Globulin Albumin/Globulin Ratio Lipase Urine Color Urine Appearance Urine pH Ur Specific [place] Urine Protein Urine Glucose (UA) Urine Ketones Urine Occult Blood Urine Nitrate Urine Bilirubin Urine Urobilinogen Ur Leukocyte Esterase Urine RBC Urine WBC Ur Squamous Epith Cells Urine Bacteria Ur Culture Indicated? C. difficile Tox (PCR) TNP SARS-CoV-2 (PCR) Blood Type Antibody Screen [facility] Medical History Constipation GERD (gastroesophageal reflux disease) Head contusion Osteoarthritis Post concussive syndrome Trigeminal neuralgia Social History household members: significant other Smoking Status: Former smoker alcohol intake: current Assessment & Plan Assessment & Plan narrative: 1. Acute GI bleed -has brbpr, recent colonoscopy with polyp removal, diverticulosis noted, and internal hemorrhoids, all are possible etiology as a lower GI bleed. May have issue with gastritis, esophagitis and recent esophageal diltation in [place] about 1 week ago. -initially plan for possible discharge given improvement this AM in h/h, but shortly after restarting diet she had another bowel movement with marj blood and melena. -for now will continue on protonix IV BID. Discussed with surgery whom will evaluate patient tomorrow given recurrence of bleeding today. -given findings of CT scan other etiology is bleeding from infectious, inflammatory process. Less likely ischemia -maintain two PIVs -trend h/h -continue CLD for now. 2. Abdominal pain with diarrhea -etiology not clear -possible infection, send stool culture -has been taking ciprofloxacin, c diff not likely given solid stool. -if etiology remains unclear may benefit from scope 3. GERD, esophagitis, recent dilated esophageal stricture -continue IV PPI BID for now 4. UTI -UA negative here, finish course of antibiotics with ceftriaxone x2 doses 5. Trigeminal neuralgia -asymptomatic currently -monitor for symptoms CODE: Full Proxy: Gladis Harrison daughter DVT ppx: SCDs only I have utilized all available immediate resources to obtain, update, or review the patient's current medications. Time Spent With Patient Critical Care time: I spent a total of [] minutes of critical care time on this patient's care today; this time is exclusive of procedural time. Quality VTE Deep Vein Thrombosis/Pulmonary Embolism Present on Admission: No
[2021-05-17 16:00] LABS: Hematocrit 37.9 % (36-46); Hemoglobin 12.6 g/dL (12.0-16.0)
[2021-05-17] MEDS: PHENAZOPYRIDINE 100 MG TABLET PO (18:26)
[2021-05-17 20:11] LABS: Hematocrit 36.3 % (36-46); Hemoglobin 12.2 g/dL (12.0-16.0)
[2021-05-17] MEDS: cefTRIAXone 1,000 MG in SODIUM CHLORIDE 0.9% 100 ML 200 ML IV (21:02)
[2021-05-18] VITALS (8 sets, daily range): BP systolic 132–149; BP diastolic 64–80; PULSE 72–97; RESP 16–20; TEMP 36.3–36.8; O2SAT 95–97
[2021-05-18] MEDS: TRAZODONE 50 MG TABLET PO (00:04)
[2021-05-18 05:49] LABS: Add Manual Diff / Slide Review NO; Basophils Absolute Auto 0 /uL (0-100); Basophils Percent Auto 0.7 % (0-2); Eosinophils Absolute Auto 200 /uL (0-450); Eosinophils Percent Auto 2.9 % (2-4); Hematocrit 34.2 % (36-46); Hemoglobin 11.4 g/dL (12.0-16.0); Lymphocytes Absolute Auto 2200 /uL (1100-4500); Lymphocytes Percent Auto 37.3 % (25-40); Mean Corpuscular HGB Conc 33.4 % (30-36); Mean Corpuscular Hemoglobin 31.5 PG (26-34); Mean Corpuscular Volume 94.3 fL (80-100); Monocytes Absolute Auto 600 /uL (0-900); Monocytes Percent Auto 9.7 % (3-14); Neutrophils Absolute Auto 3000 /uL (1500-7000); Neutrophils Percent Auto 49.4 % (50-75); Platelet Count 160 X10^3/uL (150-400); Red Blood Cell Count 3.63 X10^6/uL (4.0-5.2); Red Cell Distribution Width 12.7 % (11.6-14.8)
[2021-05-18 05:56] LABS: BUN Creatinine Ratio 16.2 (6-22); Blood Urea Nitrogen 11 mg/dL (7-17); Calcium 8.3 mg/dL (8.4-10.2); Carbon Dioxide 25 mmol/L (22-32); Chloride 111 mmol/L (98-107); Estimated Glomerular Filt Rate > 60.0 mL/min (>60); Glucose 88 mg/dL (80-110); HEMOLYSIS < 15 (0-50); Magnesium 2.1 mg/dL (1.6-2.3); Potassium 3.7 mmol/L (3.4-5.1); Sodium 141 mmol/L (137-145)
--- NOTE | 2021-05-18 08:44 | PM.CN ---
History of Present Illness Consult details Date Patient Seen: 05/18/21 Time Patient Seen: 08:45 Chief complaint: Bleeding post endo/colonoscopy Reason for consult: GI bleed Requesting provider: Felix Mahan Narrative: s/p colonoscopy with polypectomy and EGD with dilation last week. Had light headedness and dark stools at home. Normally is constipated. Also had abdominal pain on presentation. CT scan reviewed and there is isolated segment of small bowel that is thickened with mild proximal SB dilation c/w enteritis. UTI symptoms as well. Hct 38 down to 34 with hydration, BM's are 2 per day. Meds Home Medications and Allergies Home Medications Medication Instructions Recorded Confirmed Type omeprazole 20 mg capsule,delayed 20 mg PO DAILY 09/10/20 05/16/21 History release trazodone 50 mg tablet 50 mg PO BEDTIME 09/10/20 05/16/21 History estradiol 0.5 mg tablet 0.5 mg PO DAILY tab 10/24/20 05/16/21 History simvastatin 10 mg tablet 10 mg PO DAILY tab 10/24/20 05/16/21 History Allergies Allergy/AdvReac Type Severity Reaction Status Date / Time prochlorperazine AdvReac Intermediate Verified 04/22/21 10:26 [From Compazine] Review of Systems Review of Systems ROS: Yes All systems reviewed with the patient and are negative except as otherwise documented Exam Vital Signs (past 8 hours): - 05/18/21 03:09 05/18/21 04:00 05/18/21 07:00 Temperature 97.4 F L Pulse Rate 96 H Respiratory Rate 19 Blood Pressure 132/75 Pulse Oximetry 95 95 96 Oxygen Delivery Method Room Air Oxygen Flow Rate 0 Const General: cooperative and healthy appearing Nutritional Appearance: average body habitus [facility] Head: normal to inspection and atraumatic Ears: hearing grossly normal bilaterally Nose: external nose normal Mouth: oral mucosae normal Eyes General: appearance normal, both eyes and all related structures Sclera: sclerae normal Neck Neck: trachea midline Chest Chest: normal inspection of the chest Resp Effort & Inspection: normal respiratory effort and able to speak in complete sentences Cardio Rate: regular rate Rhythm: regular rhythm (occasional ectopic beat) GI Inspection: distended Palpation: soft and tender (mild mid abdominal tenderness) Skin General: elasticity normal and atrophy Neuro General: patient alert and patient oriented x3 Cognition: normal cognition Psych Mental Status: mental status grossly normal Judgment: judgment good Objective Labs Result Diagrams: 05/18/21 05:19 05/18/21 05:19 Labs: Laboratory Results - last 24 hr 05/17/21 05/17/21 05/17/21 13:50 15:53 20:06 WBC RBC Hgb 12.6 12.2 Hct 37.9 36.3 MCV MCH MCHC RDW Plt Count Neut % (Auto) Lymph % (Auto) [place] % (Auto) Eos % (Auto) Baso % (Auto) Neut # (Auto) Lymph # (Auto) [place] # (Auto) Eos # (Auto) Baso # (Auto) Sodium Potassium Chloride Carbon Dioxide BUN Creatinine Estimated GFR BUN/Creatinine Ratio Glucose Calcium Magnesium C. difficile Tox (PCR) TNP 05/18/21 05/18/21 05:19 05:19 WBC 6.0 RBC 3.63 L Hgb 11.4 L Hct 34.2 L MCV 94.3 MCH 31.5 MCHC 33.4 RDW 12.7 Plt Count 160 Neut % (Auto) 49.4 L Lymph % (Auto) 37.3 [place] % (Auto) 9.7 Eos % (Auto) 2.9 Baso % (Auto) 0.7 Neut # (Auto) 3000 Lymph # (Auto) 2200 [place] # (Auto) 600 Eos # (Auto) 200 Baso # (Auto) 0 Sodium 141 Potassium 3.7 Chloride 111 H Carbon Dioxide 25 BUN 11 Creatinine 0.68 Estimated GFR > 60.0 BUN/Creatinine Ratio 16.2 Glucose 88 Calcium 8.3 L Magnesium 2.1 C. difficile Tox (PCR) [facility] Medical History Constipation GERD (gastroesophageal reflux disease) Head contusion Osteoarthritis Post concussive syndrome Trigeminal neuralgia Social History household members: significant other Tobacco & Substance Use Smoking Status: Former smoker alcohol intake: current Assessment & Plan Assessment & Plan narrative: Slow GI bleed likely secondary to focal ischemic small bowel related to emboli. Could also be viral enteritis. Endoscopy would not be helpful. Recommend treatment of UTI, general diet and supportive care. Should resolve. COVID-19 COVID-19 status: Negative Time Spent With Patient Critical Care time: I spent a total of [] minutes of critical care time on this patient's care today; this time is exclusive of procedural time.
[2021-05-18] MEDS: PHENAZOPYRIDINE 100 MG TABLET PO ×2 (08:55→18:11)
[2021-05-18] MEDS: PANTOPRAZOLE 40 MG VIAL IV (08:55)
[2021-05-18] MEDS: ATORVASTATIN 20 MG TABLET 10 MG PO (08:55)
[2021-05-18 13:53] LABS: Hematocrit 36.9 % (36-46)
--- NOTE | 2021-05-18 14:18 | P.DS_ITS ---
History of Present Illness History of Present Illness Date Patient Seen: 05/18/21 Time Patient Seen: 14:19 Chief complaint: Bleeding post endo/colonoscopy Narrative: Per Dr. Leyva, Ms. Smith is a 75W with PMH GERD, chronic constipation with some incontinence, trigeminal neuralgia, recent UTI who presents with bright red blood per rectum. Patient recently, on 05/09, had an EGD and colonoscopy. EGD was done for known dysphagia and globus sensation, and colonoscopy done for intermittent stool incontinence. EGD showed an esophageal stricture that was dilated, and esophagitis, biopsies were taken and were benign. In addition colonoscopy showed diverticulosis, internal hemorrhoids, and polyps which were removed. Polyps were benign. She noticed Thursday she wasn't feeling normal, then Thursday morning she noticed dark colored blood in her stool. She toady has had two large bowel movements with diarrhea and bright red blood per rectum. She has felt dizzy while standing. She has also noted lower abdomen pain and distended belly. She has no vomiting. She has no fevers. She does feel she has had chills. She has no chest pain or shortness of breath. She denies significant nsaid use, minimal alcohol use. She has been treated for a UTI with ciprofloxacin and has two days of antibiotics remaining. In the ED workup was done, vitals notable for mild tachycardia with HR in 90s, and normal blood pressure systolic of 140s. Labs notable for WBC 10.1, Hgb 13.2, BUN 14, creatinine 0.68. LFTs and lipase ok. CT chest showed no acute process. CT abdomen showed moderately long segement of small bowel wall thickening suggestive of most likely inflammation or infection, with less likely allergic reaction or hematoma. She had small amout of free fluid in the pelvis. She had no evidence of free air, no obstruction, and large quantity of stool in the colon. She was ordered for IV fluid and protonix and admitted for further treatment. Family history: father, grandfather with prostate cancer Social history: employed as nurse Discharge Providers Provider Date of admission: 05/16/21 19:44 Discharge Date: 05/18/21 Primary care physician: Cisco Pereira MD Consults: 05/17/21 14:01 Consult to General Surgery Routine Comment: Consulting Provider: Michelle Montenegro Reason for consultation: GI bleeding after recent endoscopy Discharge provider: Felix Mahan DO Summary Hospital Course Discharge Diagnosis: 1. Acute GI bleed 2. Abdominal pain with diarrhea 3. GERD, esophagitis, recent dilated esophageal stricture 4. UTI 5. Trigeminal neuralgia Hospital Course: This is a 75-year-old female admitted with abdominal pain, diarrhea, and an acute GI bleed. She recently had an endoscopy and colonoscopy with the polypectomy and an esophageal dilatation. During the course of her admission she had 1 bowel movement with dark stools mixed with bright red blood, but no other events. Shortly after that bloody stool, her H&H continued to drop slightly, surgery was asked to see the patient who did not recommend for any further endoscopies. H/h stayed stable between 11 and 12 during her admission. Patient had her omeprazole increased for possible small bowel enteritis or bleeding after her dilatation. Iron panel was checked and was not consistent with an iron deficiency. Patient was able to tolerate a diet on the day of discharge. C difficile testing was ordered but unable to be performed due to solid stool. Patient also had a recent UTI and finished course of antibiotics here with ceftriaxone for 2 doses. At discharge is recommended to continue oral PPI twice daily for 30 days, and I do recommend that she follow-up with her gastroenterology group to discuss any potential further management after likely bleeding after dilatation. Exam Vital Signs (past 8 hours): - 05/18/21 07:00 05/18/21 09:30 05/18/21 11:20 Temperature 98.2 F 97.6 F Pulse Rate 97 H 88 Respiratory Rate 20 16 Blood Pressure 144/78 H 149/64 H Pulse Oximetry 97 96 96 05/18/21 13:00 Temperature Pulse Rate Respiratory Rate Blood Pressure Pulse Oximetry 96 Oxygen Delivery Method Room Air Oxygen Flow Rate 0 Narrative Exam Narrative: GEN: no acute distress HEENT: moist mucous membranes, PERRL NECK: trachea midline, no JVD CV: regular rate and rhythm with no murmurs PULM : clear bilaterally, no wheezes, rhonchi, rales ABD: soft, improved tenderness, non-distended. EXT: warm and well perfused with no edema NEURO: awake, alert, oriented, no focal deficits noted PSYCH: pleasant, cooperative Objective Labs Result Diagrams: 05/18/21 13:45 05/18/21 05:19 Labs: Laboratory Results - last 24 hr 05/17/21 05/17/21 05/18/21 15:53 20:06 05:19 WBC 6.0 RBC 3.63 L Hgb 12.6 12.2 11.4 L Hct 37.9 36.3 34.2 L MCV 94.3 MCH 31.5 MCHC 33.4 RDW 12.7 Plt Count 160 Neut % (Auto) 49.4 L Lymph % (Auto) 37.3 [place] % (Auto) 9.7 Eos % (Auto) 2.9 Baso % (Auto) 0.7 Neut # (Auto) 3000 Lymph # (Auto) 2200 [place] # (Auto) 600 Eos # (Auto) 200 Baso # (Auto) 0 Sodium Potassium Chloride Carbon Dioxide BUN Creatinine Estimated GFR BUN/Creatinine Ratio Glucose Calcium Magnesium 05/18/21 05/18/21 05:19 13:45 WBC RBC Hgb 12.0 Hct 36.9 MCV MCH MCHC RDW Plt Count Neut % (Auto) Lymph % (Auto) [place] % (Auto) Eos % (Auto) Baso % (Auto) Neut # (Auto) Lymph # (Auto) [place] # (Auto) Eos # (Auto) Baso # (Auto) Sodium 141 Potassium 3.7 Chloride 111 H Carbon Dioxide 25 BUN 11 Creatinine 0.68 Estimated GFR > 60.0 BUN/Creatinine Ratio 16.2 Glucose 88 Calcium 8.3 L Magnesium 2.1 [facility] [place] Medical History Constipation GERD (gastroesophageal reflux disease) Head contusion Osteoarthritis Post concussive syndrome Trigeminal neuralgia Social History household members: significant other Smoking Status: Former smoker alcohol intake: current Discharge Plan Discharge Plan Patient Disposition: Home Provider Discharge Comment: You were admitted the hospital with GI bleeding, this was thought to be due to your recent dilatation and small intestine inflammation. Your home omeprazole will be increased. Please call your early childhood teacher assistant office on Thursday to see if they'd like to see you given probable complication of dilatation. Expect some dark stools for a few days, should they continue to happen after 4-5 days please follow up with your gastroenterology group. Discharge orders & Medications Prescriptions: New omeprazole 40 mg capsule,delayed release(DR/EC) 40 mg PO BID 30 Days Qty: 60 RF: 0 Continued trazodone 50 mg tablet 50 mg PO BEDTIME RF: 0 simvastatin 10 mg tablet 10 mg PO DAILY RF: 0 estradiol 0.5 mg tablet 0.5 mg PO DAILY RF: 0 Discontinued omeprazole 20 mg capsule,delayed release(DR/EC) 20 mg PO DAILY RF: 0 Follow up/Referrals: Cisco Pereira MD [Primary Care Provider] - Discharge Health Status Multidrug resistant organism: No MDRO Diet/Activity/Treatments Diet: Diet as Tolerated Activity: As tolerated Discharge Data Primary Care Provider: Cisco Pereira Attending Provider: Yayo Leyva VTE Deep Vein Thrombosis/Pulmonary Embolism Present on Admission: No
[2021-05-18 15:37] LABS: HEMOLYSIS < 15 (0-50); Iron 69 ug/dL (37-170)
[2021-05-18 15:48] LABS: Percent Iron Saturation 24 % (15-50); Total Iron Binding Capacity 287 ug/dL (265-497); Transferrin 224 mg/dL (206-381)
--- NOTE | 2021-05-18 18:58 | PC.NURSE ---
Discharge Note Patient A&O, VSS, RA, no complaints of pain or discomfort. Discharge packet reviewed with patient, all questions/concerns addressed. PIV/TELE discontinued. 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 All belongings and discharge packet given to patient. Patient taken down via wheelchair to POV.
== END 2021-05-18 18:15 | disposition home or self-care (01) ==
LOC: ED 19:28 → AC 19:46
PROVIDERS: Emergency Medicine; Internal Medicine; Admitting Provider Internal Medicine; Emergency Provider Emergency Medicine; PCP Family Medicine; Referring Provider Emergency Medicine; Visit Provider Internal Medicine
DX: K62.5 Hemorrhage of anus and rectum (principal); R10.9 Unspecified abdominal pain; R19.7 Diarrhea, unspecified; R42 Dizziness and giddiness; R00.0 Tachycardia, unspecified; Z87.440 Personal history of urinary (tract) infections; K21.9 Gastro-esophageal reflux disease without esophagitis; G50.0 Trigeminal neuralgia; Z20.822 Contact with and (suspected) exposure to COVID-19
CPT/HCPCS: 36415; 71260; 74177; 80048; 80053; 81001; 83540; 83550; 83690; 83735; 84484; 85014; 85018; 85025; 85027; 86850; 86900; 86901; 87045; 87635; 87899; 93005; 93010; 94760; 96361; 96365; 96366; 96375; 99225; 99284; C9803; G0378; C9113; J0696; Q9967

== ENCOUNTER → 2023-10-05 12:27 | Outpatient (CLI) | payer MEDICARE, SELFPAY ==
[2021-05-16 19:57] VITALS: BMI 20.8
--- NOTE | 2023-10-05 12:36 | DI.CT.S_ITS ---
PROCEDURE: CT ANGIO HEAD AND NECK INDICATIONS: Tinnitus, unspecified ear TECHNIQUE: After the administration of intravenous contrast, 1 mm thick sections acquired from the aortic arch through the [place]. 3-dimensional mvjkrtk-kyuieuxcg-gwzywpgoqt (MIP) and/or volume rendering reformats were acquired of the central intracranial vasculature and neck separately. For radiation dose reduction, the following was used: automated exposure control, adjustment of mA and/or kV according to patient size. COMPARISON: None. FINDINGS: Image quality: Limited by bolus timing, with venous contamination. BRAIN: CSF spaces: Ventricles are normal in size and shape. Basal cisterns are patent. No extra-axial fluid collections. Brain: No significant abnormality of the brain can be seen. Skull and face: Calvarium and facial bones appear intact, without suspicious lesions. Orbits appear normal. Sinuses: Sinuses and mastoids are clear. HEAD CT ANGIOGRAPHY: Anterior circulation: Intracranial internal carotid arteries are normal in size and flow. There is a hypoplastic right A1 segment, with a corresponding robust left A1 segment. This is considered to be a normal developmental variant of the [place] of [place], of typically no clinical consequence. The flow within the paired anterior cerebral arteries is otherwise normal and symmetric. The flow within the middle cerebral arteries is normal and symmetric. The anterior communicating artery is seen. No aneurysms are seen. Posterior circulation: Visualized portions of the vertebral arteries demonstrate normal caliber, and join to form a normal appearing basilar artery. There is a prominent right posterior communicating artery seen, with an accompanying diminutive right P1 segment. This is attributed to a type origin of the right posterior cerebral artery, which is considered to be a normal developmental variant of typically no clinical consequence. The flow within the posterior cerebral arteries is normal and symmetric. No aneurysms are seen. NECK CT ANGIOGRAPHY: Carotid system: The great vessels demonstrate a conventional anatomy as they arise from the aortic arch. The origins of the common carotid arteries appear patent. The common carotid arteries demonstrate normal caliber and courses. The bifurcation regions are both widely patent. The internal carotid arteries demonstrate normal calibers and courses. Posterior circulation: The origins of the vertebral arteries both appear widely patent. The more superior extracranial portions of both vertebral arteries also demonstrate normal courses and calibers. The left vertebral artery is dominant to the right. Soft tissues: Visualized neck soft tissues demonstrate no suspicious abnormalities. Bones: No suspicious bony lesions. Visualized cervical spine appears normally aligned. Moderate lower cervical spine degenerative change can be seen. IMPRESSION: No imaging explanation is found for this patient's presenting symptoms. No significant intracranial arterial abnormality is seen. No significant abnormality is seen within the arteries of the neck. Additional findings: Vqsuhl-yr-Nhkwte developmental anomalies Moderate lower cervical spine degenerative change Any quantitative measurements of stenosis were performed using NASCET criteria. Dictated by: Agustin Ho M.D. on 10/05/2023 at 16:30 Approved by: Agustin Ho M.D. on 10/05/2023 at 16:32
[2023-10-05 13:23] LABS: Estimated Glomerular Filt Rate > 60 mL/min (>60)
== END ==
LOC: CT 12:32
PROVIDERS: Radiology Diagnostic Radiology; PCP Family Medicine; Referring Provider Family Medicine; Visit Provider Family Medicine
DX: H93.19 Tinnitus, unspecified ear (principal); I72.9 Aneurysm of unspecified site; M47.812 Spondylosis without myelopathy or radiculopathy, cervical region
CPT/HCPCS: 36415; 70496; 70498; 82565; Q9967